=== PATIENT | male | born 2000 | race Caucasian/White ===

== ENCOUNTER 2024-05-14 19:25 | Emergency (ER) | payer SELFPAY | END 2024-05-14 20:14 | disposition home or self-care (01) | LOC: NAV ERS 19:25 | DX: K12.0 Recurrent oral aphthae (principal); J10.1 Influenza due to other identified influenza virus with other respiratory manifestations; F17.210 Nicotine dependence, cigarettes, uncomplicated | CPT/HCPCS: 99283 ==